=== PATIENT | male | born 1980 ===

== ENCOUNTER 2022-12-16 05:51 | Outpatient (REF) | payer MEDICAID, OTHER, SELFPAY ==
--- NOTE | ~2022-12-16 | XR_ITS ---
EXAMINATION: XR SHOULDER, LEFT CLINICAL INFORMATION: Pain in the left shoulder COMPARISON: None TECHNIQUE: AP external rotation, Grashey, scapular Y, and axillary views of the left shoulder. FINDINGS: Minimal enthesopathic cystic change in the greater tuberosity. Bones joints and soft tissues otherwise unremarkable. XR/XR shoulder LT min 2V IMPRESSION: No acute or significant abnormality.
== END 2022-12-16 05:52 | disposition home or self-care (01) ==
LOC: HO.HOSX 05:51
PROVIDERS: Visit Provider Physician Assistant
DX: M25.512 Pain in left shoulder (principal); M75.82 Other shoulder lesions, left shoulder
CPT/HCPCS: 20610; 73030; 99202; J1040